=== PATIENT | female | born 1960 | race Caucasian/White ===

== ENCOUNTER 2017-07-29 18:57 | Emergency (ER) | payer MEDICARE, MEDICAID ==
[~2017-07-29] VITALS: Ht 160 cm; Wt 115.9 kg
[~2017-07-29 18:57] MED LIST: ALBU8.5H8 IH; ATOR10TA87 PO; CEPH500C5 PO; CLIN150C99 PO; GEMF600T3 CORPAK; GUAI120015 PO; HCTZ25T PO; METF500T PO; METO50TA16 PO; NEOM10SO7 RIGHT EAR; PSEU60TA22 PO; RAMI10CA44 PO; VALS160T2 PO
[2017-07-29] MEDS ORDERED: CEPH500C2 PO (22:53)
[2017-07-29] MEDS ORDERED: cephalexin 500mg capsule PO ONE (22:55)
[2017-07-29 22:59] VITALS: BP 125/85
== END 2017-07-29 23:07 | disposition home or self-care (01) ==
LOC: ER 18:58
DX: S51.801A Unspecified open wound of right forearm, initial encounter (principal); I10 Essential (primary) hypertension; E11.9 Type 2 diabetes mellitus without complications; E78.00 Pure hypercholesterolemia, unspecified; Z86.14 Personal history of Methicillin resistant Staphylococcus aureus infection; Z79.84 Long term (current) use of oral hypoglycemic drugs; Z79.899 Other long term (current) drug therapy; Z98.890 Other specified postprocedural states; Z88.2 Allergy status to sulfonamides; X58.XXXA Exposure to other specified factors, initial encounter; Y93.89 Activity, other specified; Y92.89 Other specified places as the place of occurrence of the external cause; Y99.8 Other external cause status
CPT/HCPCS: 99283

== ENCOUNTER → 2017-08-19 | Emergency (ER) | payer MEDICARE, MEDICAID ==
[~2017-08-19] VITALS: Ht 160 cm; Wt 117.0 kg
[~2017-08-19] MED LIST changes: +AZIT-63 PO; +GUAI473S11 PO; +TAM75C PO
[2017-08-19 01:03] VITALS: BP 132/79
== END | disposition home or self-care (01) ==
LOC: ER 01:00
DX: J20.9 Acute bronchitis, unspecified (principal); I10 Essential (primary) hypertension; E11.9 Type 2 diabetes mellitus without complications; E78.00 Pure hypercholesterolemia, unspecified; Z88.2 Allergy status to sulfonamides
CPT/HCPCS: 99283

== ENCOUNTER 2018-03-21 01:01 | Emergency (ER) | payer MEDICARE, MEDICAID ==
[~2018-03-21] VITALS: Ht 160 cm; Wt 113.5 kg
[~2018-03-21 01:01] MED LIST changes: -AZIT-63 PO; -CEPH500C5 PO; +CLIN300C85 PO; -GEMF600T3 CORPAK; +GEMF600T5 CORPAK; -GUAI473S11 PO; -TAM75C PO
[2018-03-21] MEDS ORDERED: GUAI473S11 PO (01:22)
[2018-03-21] MEDS ORDERED: CLIN300C54 PO (01:22)
[2018-03-21 01:30] VITALS: BP 154/72
== END 2018-03-21 01:35 | disposition home or self-care (01) ==
LOC: ER 01:01
DX: S80.812A Abrasion, left lower leg, initial encounter (principal); J20.9 Acute bronchitis, unspecified; L03.116 Cellulitis of left lower limb; E78.00 Pure hypercholesterolemia, unspecified; I10 Essential (primary) hypertension; E11.9 Type 2 diabetes mellitus without complications; Z98.890 Other specified postprocedural states; Z86.14 Personal history of Methicillin resistant Staphylococcus aureus infection; Z88.2 Allergy status to sulfonamides; Z79.899 Other long term (current) drug therapy; W22.03XA Walked into furniture, initial encounter; Y93.89 Activity, other specified; Y92.099 Unspecified place in other non-institutional residence as the place of occurrence of the external cause; Y99.9 Unspecified external cause status
CPT/HCPCS: 99283

== ENCOUNTER 2018-05-01 00:11 | Emergency (ER) | payer MEDICARE, MEDICAID ==
[~2018-05-01] VITALS: Ht 160 cm; Wt 112.5 kg
[2018-05-01 00:12] VITALS: BP 159/89
[2018-05-01] MEDS ORDERED: CEPH500C5 PO (01:35)
== END 2018-05-01 01:55 | disposition home or self-care (01) ==
LOC: ER 00:12
DX: L03.119 Cellulitis of unspecified part of limb (principal); E78.00 Pure hypercholesterolemia, unspecified; I10 Essential (primary) hypertension; E11.9 Type 2 diabetes mellitus without complications; Z86.14 Personal history of Methicillin resistant Staphylococcus aureus infection; Z88.2 Allergy status to sulfonamides; Z79.899 Other long term (current) drug therapy; Z79.2 Long term (current) use of antibiotics
CPT/HCPCS: 99283

== ENCOUNTER 2018-06-29 23:40 | Emergency (ER) | payer MEDICARE, MEDICAID ==
[~2018-06-29] VITALS: Ht 152.4 cm; Wt 100.0 kg
[~2018-06-29 23:40] MED LIST changes: +CEPH500C5 PO
[2018-06-29 23:45] VITALS: BP 148/115
[2018-06-29] MEDS ORDERED: CLIN300C70 PO (23:55)
== END 2018-06-30 00:02 | disposition home or self-care (01) ==
LOC: ER 23:41
DX: S80.921A Unspecified superficial injury of right lower leg, initial encounter (principal); L03.115 Cellulitis of right lower limb; E78.00 Pure hypercholesterolemia, unspecified; I10 Essential (primary) hypertension; E11.9 Type 2 diabetes mellitus without complications; Z86.14 Personal history of Methicillin resistant Staphylococcus aureus infection; Z88.2 Allergy status to sulfonamides; Z79.899 Other long term (current) drug therapy; Z79.84 Long term (current) use of oral hypoglycemic drugs; X58.XXXA Exposure to other specified factors, initial encounter; Y93.89 Activity, other specified; Y92.89 Other specified places as the place of occurrence of the external cause; Y99.8 Other external cause status
CPT/HCPCS: 99283

== ENCOUNTER 2018-07-14 19:40 | Emergency (ER) | payer MEDICARE, MEDICAID ==
[~2018-07-14] VITALS: Ht 160 cm; Wt 112.0 kg
[~2018-07-14 19:40] MED LIST changes: +CLIN300C70 PO
[2018-07-14 19:47] VITALS: BP 154/96
[2018-07-14] MEDS ORDERED: DOXY100C2 PO (20:49)
== END 2018-07-14 21:09 | disposition home or self-care (01) ==
LOC: ER 19:41
DX: L98.8 Other specified disorders of the skin and subcutaneous tissue (principal); E78.00 Pure hypercholesterolemia, unspecified; I10 Essential (primary) hypertension; E11.9 Type 2 diabetes mellitus without complications; Z86.14 Personal history of Methicillin resistant Staphylococcus aureus infection; Z98.890 Other specified postprocedural states; Z88.2 Allergy status to sulfonamides; Z79.2 Long term (current) use of antibiotics; Z79.899 Other long term (current) drug therapy
CPT/HCPCS: 99283

== ENCOUNTER 2018-08-21 00:34 | Emergency (ER) | payer MEDICARE, MEDICAID ==
[~2018-08-21] VITALS: Ht 160 cm; Wt 104.2 kg
[~2018-08-21 00:34] MED LIST changes: -CLIN300C70 PO
[2018-08-21] MEDS ORDERED: CLIN300C85 PO (01:27)
[2018-08-21 01:41] VITALS: BP 115/67
== END 2018-08-21 01:46 | disposition home or self-care (01) ==
LOC: ER 00:35
DX: L03.211 Cellulitis of face (principal); E78.00 Pure hypercholesterolemia, unspecified; I10 Essential (primary) hypertension; E11.9 Type 2 diabetes mellitus without complications; Z86.14 Personal history of Methicillin resistant Staphylococcus aureus infection; Z98.890 Other specified postprocedural states; Z88.2 Allergy status to sulfonamides; Z79.2 Long term (current) use of antibiotics; Z79.899 Other long term (current) drug therapy
CPT/HCPCS: 82948; 99283

== ENCOUNTER 2018-11-18 20:11 | Emergency (ER) | payer MEDICARE, MEDICAID ==
[~2018-11-18] VITALS: Ht 160 cm; Wt 120.0 kg
[~2018-11-18 20:11] MED LIST changes: +CLIN-96 PO; -CLIN300C85 PO
[2018-11-18 20:19] VITALS: BP 108/57
[2018-11-18] MEDS ORDERED: CEPH-572 PO (22:50)
== END 2018-11-18 22:56 | disposition home or self-care (01) ==
LOC: EDBD → ER 20:13 → MERGE 20:13 → ER 22:56
DX: L03.116 Cellulitis of left lower limb (principal); Z56.0 Unemployment, unspecified; Z79.899 Other long term (current) drug therapy
CPT/HCPCS: 99283

== ENCOUNTER 2018-11-24 00:03 | Emergency (ER) | payer MEDICARE, MEDICAID ==
[~2018-11-24] VITALS: Ht 160 cm; Wt 96.7 kg
[~2018-11-24 00:03] MED LIST changes: +CEPH-572 PO
[2018-11-24] MEDS ORDERED: CLIN150C2 PO (00:26)
[2018-11-24 00:47] VITALS: BP 118/75
== END 2018-11-24 00:48 | disposition home or self-care (01) ==
LOC: ER 00:03
DX: L03.115 Cellulitis of right lower limb (principal); I10 Essential (primary) hypertension; E78.00 Pure hypercholesterolemia, unspecified; E11.9 Type 2 diabetes mellitus without complications; Z88.2 Allergy status to sulfonamides
CPT/HCPCS: 99283

== ENCOUNTER 2019-01-09 13:46 | Emergency (ER) | payer MEDICARE, MEDICAID ==
[~2019-01-09] VITALS: Ht 160 cm; Wt 90.9 kg
[~2019-01-09 13:46] MED LIST changes: -CEPH-572 PO
[2019-01-09 14:31] VITALS: BP 121/61
[2019-01-09] MEDS ORDERED: proparacaine 0.5% ophthalmic drops 15ml EACHEYE ONE (14:40)
[2019-01-09] MEDS ORDERED: CLIN-96 PO (15:35)
[2019-01-09] MEDS ORDERED: AMOX875T2 PO (15:35)
== END 2019-01-09 15:46 | disposition home or self-care (01) ==
LOC: ER 13:47
DX: H00.031 Abscess of right upper eyelid (principal); E78.00 Pure hypercholesterolemia, unspecified; I10 Essential (primary) hypertension; E11.9 Type 2 diabetes mellitus without complications; Z86.14 Personal history of Methicillin resistant Staphylococcus aureus infection; Z98.890 Other specified postprocedural states; Z88.2 Allergy status to sulfonamides; Z79.84 Long term (current) use of oral hypoglycemic drugs; Z79.899 Other long term (current) drug therapy
CPT/HCPCS: 99283

== ENCOUNTER 2019-03-17 16:53 | Emergency (ER) | payer MEDICARE, MEDICAID ==
[~2019-03-17] VITALS: Ht 152.4 cm; Wt 115.0 kg
[~2019-03-17 16:53] MED LIST changes: +AMOX875T2 PO
[2019-03-17 16:58] VITALS: BP 132/63
[2019-03-17] MEDS ORDERED: DOXY100C43 PO (17:56)
== END 2019-03-17 18:04 | disposition home or self-care (01) ==
LOC: ER 16:54
DX: L03.114 Cellulitis of left upper limb (principal); E78.00 Pure hypercholesterolemia, unspecified; I10 Essential (primary) hypertension; E11.9 Type 2 diabetes mellitus without complications; Z86.14 Personal history of Methicillin resistant Staphylococcus aureus infection; Z98.890 Other specified postprocedural states; Z88.2 Allergy status to sulfonamides; Z79.2 Long term (current) use of antibiotics; Z79.84 Long term (current) use of oral hypoglycemic drugs; Z79.899 Other long term (current) drug therapy
CPT/HCPCS: 99283

== ENCOUNTER 2019-06-02 14:02 | Emergency (ER) | payer MEDICARE, MEDICAID ==
[~2019-06-02] VITALS: Ht 160 cm; Wt 114.0 kg
[~2019-06-02 14:02] MED LIST changes: -CEPH500C5 PO; +CLIN-90 PO; -CLIN-96 PO
[2019-06-02 14:20] VITALS: BP 116/71
[2019-06-02] MEDS ORDERED: CEPH-572 PO (15:12)
== END 2019-06-02 15:34 | disposition home or self-care (01) ==
LOC: ER 14:03
DX: I80.252 Phlebitis and thrombophlebitis of left calf muscular vein (principal); E78.00 Pure hypercholesterolemia, unspecified; I10 Essential (primary) hypertension; E11.9 Type 2 diabetes mellitus without complications; Z86.14 Personal history of Methicillin resistant Staphylococcus aureus infection; Z98.890 Other specified postprocedural states; Z88.2 Allergy status to sulfonamides; Z79.899 Other long term (current) drug therapy
CPT/HCPCS: 99284

== ENCOUNTER 2019-06-25 16:43 | Inpatient (IN) | payer MEDICARE, MEDICAID ==
[~2019-06-25] VITALS: Ht 160 cm; Wt 117.0 kg
[2019-06-25] MEDS ORDERED: benzonatate 100mg capsule PO ONE (17:55)
[2019-06-25] MEDS ORDERED: diltiazem 5mg/ml 5ml inj. IV ONE (18:20)
[2019-06-25] MEDS ORDERED: diltiazem CD 120mg capsule (once-daily) PO STA (18:20)
[2019-06-25 18:48] LABS: BASOPHILS # (AUTO) 0.1 X10'3 (0-0.2); BASOPHILS % (AUTO) 0.8 % (0-1); EOSINOPHILS # (AUTO) 0.2 X10'3 (0-0.9); EOSINOPHILS % (AUTO) 2.7 % (0-6); HEMATOCRIT 41.1 % (35.0-45.0); HEMOGLOBIN 13.2 g/dl (12.0-16.0); LYMPHOCYTES # (AUTO) 2.5 X10'3 (1.1-4.8); LYMPHOCYTES % (AUTO) 31.6 % (21-51); MEAN CORPUSCULAR HEMOGLOBIN 21.5 PG (27.0-31.0); MEAN CORPUSCULAR HGB CONC 32.2 g/dL (33.0-36.5); MEAN CORPUSCULAR VOLUME 66.7 FL (78-98); MEAN PLATELET VOLUME 8.6 FL (7.4-10.4); MONOCYTES # (AUTO) 0.6 X10'3 (0-0.9); MONOCYTES % (AUTO) 8.1 % (2-12); NEUTROPHILS # (AUTO) 4.5 X10'3 (1.8-7.7); NEUTROPHILS % (AUTO) 56.8 % (42-75); PLATELET COUNT 262 X10'3 (140-440); RED BLOOD COUNT 6.16 X10'6 (4.20-5.60); RED CELL DISTRIBUTION WIDTH 15.3 % (11.5-14.5)
[2019-06-25 18:56] LABS: PARTIAL THROMBOPLASTIN TIME 25 SECONDS (22-32)
[2019-06-25 18:57] LABS: ALANINE AMINOTRANSFERASE 49 U/L (12-78); ALBUMIN 4.5 G/DL (3.4-5.0); ALBUMIN/GLOBULIN RATIO 1.3 (1.1-1.5); ALKALINE PHOSPHATASE 44 IU/L (46-116); ANION GAP 7 (8-16); ASPARTATE AMINO TRANSFERASE 35 U/L (10-37); BILIRUBIN,TOTAL 0.6 MG/DL (0.1-1.0); BLOOD UREA NITROGEN 15 MG/DL (7-18); BUN/CREATININE RATIO 22.4 (6.6-38.0); CALCIUM 9.5 MG/DL (8.5-10.1); CHLORIDE 100 MMOL/L (99-107); CREATININE 0.67 MG/DL (0.40-0.90); GLUCOSE 106 MG/DL (70-104); POTASSIUM 3.7 MMOL/L (3.5-5.1); SODIUM 140 MMOL/L (135-145); TOTAL CARBON DIOXIDE 33.1 MMOL/L (24-32); eGFR 90 ML/MIN
--- NOTE | 2019-06-25 19:10 | NUR ---
SPOKE TO NADYA JOY REGARDING MEDICATIONS ORDERED: IV CARDIZEM 5MG AND 240 MG EXTENDED RELEASE CARDIZEM; PER NADYA HE "IS FOLLOWING PROTOCOL AND SPOKE WITH DR JUÁREZ"
[2019-06-25] MEDS: diltiazem CD 120mg capsule (once-daily) PO SCH (19:50)
[2019-06-25] MEDS ORDERED: MAGN500C16 PO (20:04)
[2019-06-25] MEDS ORDERED: GLIM2TAB3 PO (20:04)
[2019-06-25] MEDS ORDERED: OMEP40CA13 PO (20:04)
[2019-06-25] MEDS ORDERED: FERR325T32 PO (20:04)
[2019-06-25 20:08] LABS: LARGE PLATELETS MODERATE; MICROCYTOSIS 2+; PLATELET ESTIMATE NORMAL; POLYCHROMASIA FEW
[2019-06-25] MEDS ORDERED: magnesium hydroxide 30ml (MOM) UD suspension PO PRN (21:20)
[2019-06-25] MEDS ORDERED: ondansetron/PF 4mg/2ml inj IV PRN (21:20)
[2019-06-25] MEDS ORDERED: mag hydrox/Alum hydrox/simeth 30ml oral suspension PO PRN (21:20)
[2019-06-25] MEDS ORDERED: acetaminophen 325mg tablet PO PRN (21:20)
[2019-06-25] MEDS ORDERED: albuterol 2.5 MG/3 ML nebule NEB PRN (21:25)
--- NOTE | 2019-06-25 21:37 | NUR ---
CALLED PCU FOR UPDATE ON ROOM ASSIGNMENT, PT WILL BE ADMITTED BUT NO ROOM ASSIGNED AT THIS TIME. IT SECURITY MANAGER MADE AWARE. PT REMAINS STABLE AT THIS TIME.
--- NOTE | 2019-06-25 21:45 | NUR ---
Patient in room PCU 3016. I have received report from JASWANT Rolon and had the opportunity to ask questions and assume patient care.
--- NOTE | 2019-06-25 22:00 | NUR ---
Pt arrived to floor via gurney. [facility], SBA. Jessy activity well. Accompanied by sister. No signs of distress, VSS. No complaints.
[2019-06-25 22:59] VITALS: BP 124/65
[2019-06-26 02:00] VITALS: BP 117/85
--- NOTE | 2019-06-26 04:33 | NUR ---
Pharmacy called to confirm as to whether patient currently takes Ramapril and Valsartan consecutively. Pt sleeping, will confirm when woken.
[2019-06-26 06:00] VITALS: BP 111/63
[2019-06-26 06:01] LABS: BASOPHILS % (AUTO) 0.6 % (0-1); EOSINOPHILS # (AUTO) 0.1 X10'3 (0-0.9); EOSINOPHILS % (AUTO) 2.4 % (0-6); HEMATOCRIT 39.7 % (35.0-45.0); HEMOGLOBIN 12.7 g/dl (12.0-16.0); LYMPHOCYTES # (AUTO) 1.7 X10'3 (1.1-4.8); MEAN CORPUSCULAR HEMOGLOBIN 21.7 PG (27.0-31.0); MEAN CORPUSCULAR VOLUME 67.8 FL (78-98); MEAN PLATELET VOLUME 8.9 FL (7.4-10.4); MONOCYTES # (AUTO) 0.5 X10'3 (0-0.9); MONOCYTES % (AUTO) 8.5 % (2-12); NEUTROPHILS # (AUTO) 3.7 X10'3 (1.8-7.7); NEUTROPHILS % (AUTO) 60.5 % (42-75); PLATELET COUNT 200 X10'3 (140-440); RED BLOOD COUNT 5.85 X10'6 (4.20-5.60); RED CELL DISTRIBUTION WIDTH 14.8 % (11.5-14.5); WHITE BLOOD COUNT 6.1 X10'3 (4.5-11.0)
--- NOTE | 2019-06-26 06:14 | NUR ---
Patient in room PCU 3016. I have received report from JASWANT Silveira and had the opportunity to ask questions and assume patient care.
--- NOTE | 2019-06-26 06:14 | NUR ---
Problems reprioritized. Patient report given, questions answered & plan of care reviewed with JASWANT Mejia.
[2019-06-26 06:34] LABS: ALANINE AMINOTRANSFERASE 47 U/L (12-78); ALBUMIN/GLOBULIN RATIO 1.3 (1.1-1.5); ALKALINE PHOSPHATASE 38 IU/L (46-116); ANION GAP 12 (8-16); ASPARTATE AMINO TRANSFERASE 45 U/L (10-37); BILIRUBIN,TOTAL 0.7 MG/DL (0.1-1.0); BLOOD UREA NITROGEN 16 MG/DL (7-18); BUN/CREATININE RATIO 24.2 (6.6-38.0); CALCIUM 9.2 MG/DL (8.5-10.1); CHLORIDE 101 MMOL/L (99-107); CREATININE 0.66 MG/DL (0.40-0.90); GLUCOSE 121 MG/DL (70-104); POTASSIUM 3.8 MMOL/L (3.5-5.1); SODIUM 141 MMOL/L (135-145); TOTAL CARBON DIOXIDE 28.5 MMOL/L (24-32); TOTAL PROTEIN 7.2 G/DL (6.4-8.2); eGFR > 90 ML/MIN
[2019-06-26] MEDS ORDERED: heparin, porcine 5000 units/ml vial SQ SCH (08:00)
[2019-06-26] MEDS ORDERED: lisinopril 20mg tablet PO SCH (08:00)
[2019-06-26] MEDS ORDERED: losartan 50mg tablet PO SCH (08:00)
[2019-06-26 08:17] LABS: MICROCYTOSIS 2+; PLATELET ESTIMATE NORMAL
[2019-06-26 08:18] LABS: ELLIPTOCYTES FEW; POLYCHROMASIA FEW
[2019-06-26] MEDS: pantoprazole 40mg Tablet.DR PO SCH (08:21)
[2019-06-26] MEDS: metoprolol tartrate 50mg tablet PO SCH ×2 (08:21→20:33)
[2019-06-26] MEDS: glimepiride 1 MG tablet PO SCH (08:22)
[2019-06-26] MEDS: ferrous sulfate 325mg tablet PO SCH (08:22)
[2019-06-26] MEDS: gemfibrozil 600mg tablet CORPAK SCH ×2 (08:22→20:33)
[2019-06-26] MEDS: metFORMIN 500mg tablet PO SCH ×2 (10:18→17:45)
[2019-06-26 11:00] VITALS: BP 126/74
[2019-06-26 15:00] VITALS: BP 102/52
--- NOTE | 2019-06-26 18:36 | NUR ---
Problems reprioritized. Patient report given, questions answered & plan of care reviewed with JASWANT Chacon.
[2019-06-26 19:00] VITALS: BP 127/48
[2019-06-26] MEDS: apixaban 5mg tablet PO SCH (20:31)
[2019-06-26] MEDS ORDERED: magnesium oxide 400mg tablet PO SCH (21:00)
[2019-06-26] MEDS ORDERED: atorvastatin 10mg tablet PO SCH (21:00)
[2019-06-26 23:00] VITALS: BP 111/57
[2019-06-27 03:00] VITALS: BP 114/58
[2019-06-27 06:00] VITALS: BP 112/82
[2019-06-27 06:15] LABS: BASOPHILS % (AUTO) 0.6 % (0-1); EOSINOPHILS # (AUTO) 0.2 X10'3 (0-0.9); EOSINOPHILS % (AUTO) 2.6 % (0-6); HEMATOCRIT 40.2 % (35.0-45.0); HEMOGLOBIN 12.7 g/dl (12.0-16.0); LYMPHOCYTES # (AUTO) 1.9 X10'3 (1.1-4.8); LYMPHOCYTES % (AUTO) 31.4 % (21-51); MEAN CORPUSCULAR HEMOGLOBIN 21.2 PG (27.0-31.0); MEAN CORPUSCULAR HGB CONC 31.6 g/dL (33.0-36.5); MEAN PLATELET VOLUME 8.8 FL (7.4-10.4); MONOCYTES # (AUTO) 0.5 X10'3 (0-0.9); MONOCYTES % (AUTO) 8.8 % (2-12); NEUTROPHILS # (AUTO) 3.5 X10'3 (1.8-7.7); NEUTROPHILS % (AUTO) 56.6 % (42-75); PLATELET COUNT 218 X10'3 (140-440); RED BLOOD COUNT 6.01 X10'6 (4.20-5.60); WHITE BLOOD COUNT 6.2 X10'3 (4.5-11.0)
--- NOTE | 2019-06-27 06:25 | NUR ---
Patient in room PCU 3016. I have received report from Ines MICHAUD and had the opportunity to ask questions and assume patient care.
--- NOTE | 2019-06-27 06:36 | NUR ---
Patient in room PCU 3016. I have received report from JASWANT Chacon and had the opportunity to ask questions and assume patient care.
[2019-06-27 06:49] LABS: ALANINE AMINOTRANSFERASE 46 U/L (12-78); ALBUMIN 3.8 G/DL (3.4-5.0); ALBUMIN/GLOBULIN RATIO 1.2 (1.1-1.5); ALKALINE PHOSPHATASE 37 IU/L (46-116); ANION GAP 7 (8-16); ASPARTATE AMINO TRANSFERASE 43 U/L (10-37); BILIRUBIN,TOTAL 0.7 MG/DL (0.1-1.0); BLOOD UREA NITROGEN 24 MG/DL (7-18); BUN/CREATININE RATIO 34.8 (6.6-38.0); CHLORIDE 103 MMOL/L (99-107); CREATININE 0.69 MG/DL (0.40-0.90); GLUCOSE 114 MG/DL (70-104); POTASSIUM 4.1 MMOL/L (3.5-5.1); SODIUM 142 MMOL/L (135-145); TOTAL CARBON DIOXIDE 32.5 MMOL/L (24-32); eGFR 87 ML/MIN
[2019-06-27 07:29] LABS: MICROCYTOSIS 2+; PLATELET ESTIMATE NORMAL
[2019-06-27 07:30] LABS: ELLIPTOCYTES FEW; POLYCHROMASIA FEW; SCHISTOCYTES FEW; TEAR DROP CELLS FEW
[2019-06-27] MEDS: pantoprazole 40mg Tablet.DR PO SCH (08:14)
[2019-06-27] MEDS: apixaban 5mg tablet PO SCH (08:14)
[2019-06-27] MEDS: ferrous sulfate 325mg tablet PO SCH (08:14)
[2019-06-27] MEDS: gemfibrozil 600mg tablet CORPAK SCH (08:14)
[2019-06-27] MEDS: diltiazem CD 120mg capsule (once-daily) PO SCH (08:15)
[2019-06-27] MEDS: glimepiride 1 MG tablet PO SCH (08:15)
[2019-06-27] MEDS: metoprolol tartrate 50mg tablet PO SCH (08:16)
[2019-06-27] MEDS: metFORMIN 500mg tablet PO SCH (08:59)
[2019-06-27 11:00] VITALS: BP 128/69
[2019-06-27] MEDS ORDERED: APIX5TAB3 PO (11:58)
[2019-06-27] MEDS ORDERED: CARCD120C PO (11:58)
--- NOTE | 2019-06-27 13:15 | NUR ---
Discharge instructions, including medication information, follow-up appts & S&S of worsening condition reviewed with pt and pt's sister. Pt and sister had opportunity to ask questions & expressed understanding of discharge instructions. Tele box removed & returned to teletypewriter operator, IV removed, cannula intact. Wrist band removed. All pt belongings gathered up & sent with pt. Pt transported to [facility] in wheelchair where she ambulated independently to private vehicle without difficulty.
--- NOTE | 2019-06-27 13:40 | NUR ---
Pt prescriptions called into pt preferred pharmacy, phone number [phone].
[2019-06-27 14:10] LABS: HEMOGLOBIN A1C 6.2 % (4.5-6.2)
== END 2019-06-27 13:22 | disposition home or self-care (01) | DRG 310 ==
LOC: ER 16:45 → ED HOLD 21:32 → EDBEDREQ 21:47 → PCU 3S 22:46 → OBSVTOIN 06-26 09:30
PROVIDERS: ADMIT Internal Medicine; ATTEND Family Medicine
DX: I48.91 Unspecified atrial fibrillation (principal); B34.9 Viral infection, unspecified; E78.5 Hyperlipidemia, unspecified; E11.9 Type 2 diabetes mellitus without complications; E78.00 Pure hypercholesterolemia, unspecified; I10 Essential (primary) hypertension; M17.12 Unilateral primary osteoarthritis, left knee; R94.31 Abnormal electrocardiogram [ECG] [EKG]; H92.01 Otalgia, right ear; Z88.2 Allergy status to sulfonamides
CPT/HCPCS: 36415; 80053; 83036; 85025; 85610; 85730; 87081; 93005; 93306; 94760; 96372; 96374; 99285; G0378; J1644; J3490

== ENCOUNTER 2019-10-08 17:52 | Emergency (ER) | payer MEDICARE, MEDICAID ==
[~2019-10-08] VITALS: Ht 160 cm; Wt 115.0 kg
[~2019-10-08 17:52] MED LIST changes: -AMOX875T2 PO; +APIX5TAB3 PO; +CARCD120C PO; -CLIN-90 PO; -CLIN150C99 PO; +FERR325T32 PO; +GLIM2TAB6 PO; -GUAI120015 PO; -HCTZ25T PO; +MAGN500C16 PO; -NEOM10SO7 RIGHT EAR; +OMEP40CA13 PO; -PSEU60TA22 PO; -RAMI10CA44 PO
[2019-10-08 17:54] VITALS: BP 150/93
[2019-10-08] MEDS ORDERED: ERYT1OIN6 EACHEYE ×2 (18:05→18:06)
== END 2019-10-08 18:14 | disposition home or self-care (01) ==
LOC: ER 17:52
DX: H10.9 Unspecified conjunctivitis (principal); E78.00 Pure hypercholesterolemia, unspecified; I10 Essential (primary) hypertension; E11.9 Type 2 diabetes mellitus without complications; Z86.14 Personal history of Methicillin resistant Staphylococcus aureus infection; Z98.890 Other specified postprocedural states; Z88.2 Allergy status to sulfonamides; Z79.01 Long term (current) use of anticoagulants; Z79.2 Long term (current) use of antibiotics; Z79.899 Other long term (current) drug therapy
CPT/HCPCS: 99283

== ENCOUNTER 2019-12-12 23:20 | Emergency (ER) | payer MEDICARE, MEDICAID ==
[~2019-12-12] VITALS: Ht 160 cm; Wt 114.1 kg
[2019-12-12 23:23] VITALS: BP 172/105
[2019-12-12] MEDS ORDERED: CLIN150C2 PO (23:30)
[2019-12-12] MEDS ORDERED: TETanus/Pertussis (Acell)/Diphther VAC/PF (Tdap-Adult) 0.5ml syringe IMVAC ONE (23:30)
[2019-12-12] MEDS ORDERED: CEPH-572 PO (23:30)
--- NOTE | 2019-12-15 13:05 | NUR ---
PT CALLED AND NOTIFIED THAT THE CLINDAMYCIN THAT SHE IS TAKING FOR HER CELLULITS IS NOT EFFECTIVE AGAINST THE BACTERIA PER THE LAB RESULTS RECEIVED TODAY. PT ADVISED THAT SHE IS TO STOP TAKING THE CLINDAMYCIN AND A NEW RX WILL BE CALLED INTO HER PHARMACY FOR RIFAMPIN 300MG PO BID x7 DAYS. PT REQUESTED THAT THE RX BE CALLED INTO [facility], IF OPEN; IF NOT CALL TO [facility] [address] RX WAS CALLED INTO [facility] REQUESTED. PT WAS UNABLE TO IDENTIFY WHICH OF HER ABX CURRENTLY TAKING WAS THE CLINDAMYCIN, REQUESTED THAT SHE TAKE HER ABX TO THE PHARMACY AND HAVE THE PHARMACIST IDENTIFY THE CLINDAMYCIN FOR THE PT. IT WAS REQUESTED OF THE PHARMACIST TO HELP THE PT IDENTIFY HER CLINDAMYCIN AND TO DISPOSE OF IT FOR THE PT SINCE SHE IS NOT TO TAKE THE MEDICATION ANY LONGER. PHARMASIST STATED THAT SHE WOULD DISPOSE OF THE CLINDAMYCIN FOR THE PT.
== END 2019-12-12 23:59 | disposition home or self-care (01) ==
LOC: ER 23:20
DX: L02.415 Cutaneous abscess of right lower limb (principal); L03.115 Cellulitis of right lower limb; E11.9 Type 2 diabetes mellitus without complications; E78.00 Pure hypercholesterolemia, unspecified; I10 Essential (primary) hypertension; Z86.14 Personal history of Methicillin resistant Staphylococcus aureus infection; Z98.890 Other specified postprocedural states; Z88.2 Allergy status to sulfonamides; Z79.01 Long term (current) use of anticoagulants; Z79.899 Other long term (current) drug therapy
CPT/HCPCS: 87070; 87077; 87186; 90471; 90715; 99283

== ENCOUNTER 2019-12-19 23:22 | Emergency (ER) | payer MEDICARE, MEDICAID ==
[~2019-12-19] VITALS: Ht 160 cm; Wt 90.9 kg
[~2019-12-19 23:22] MED LIST changes: +CEPH-572 PO; +CLIN150C2 PO
[2019-12-19 23:25] VITALS: BP 125/91
[2019-12-20] MEDS ORDERED: DOXYCYCLINE 100MG CAPSULE PO STA (00:21)
[2019-12-20] MEDS ORDERED: DOXY100C43 PO (00:24)
[2019-12-20] MEDS ORDERED: LEVO500T89 PO (00:24)
[2019-12-20] MEDS ORDERED: levoFLOXACIN 250mg tablet PO ONE (00:25)
== END 2019-12-20 00:33 | disposition home or self-care (01) ==
LOC: ER 23:22
DX: L03.115 Cellulitis of right lower limb (principal); E78.00 Pure hypercholesterolemia, unspecified; I10 Essential (primary) hypertension; E11.9 Type 2 diabetes mellitus without complications; Z86.14 Personal history of Methicillin resistant Staphylococcus aureus infection; Z98.890 Other specified postprocedural states; Z56.0 Unemployment, unspecified; Z88.2 Allergy status to sulfonamides; Z79.01 Long term (current) use of anticoagulants; Z79.2 Long term (current) use of antibiotics; Z79.899 Other long term (current) drug therapy
CPT/HCPCS: 82948; 99283

== ENCOUNTER 2020-11-24 19:30 | Emergency (ER) | payer MEDICARE, MEDICAID ==
[~2020-11-24] VITALS: Ht 160 cm; Wt 105.4 kg
[~2020-11-24 19:30] MED LIST changes: -CEPH-572 PO; -CLIN150C2 PO; -GEMF600T5 CORPAK; +GEMF600T90 CORPAK
[2020-11-24 19:33] VITALS: BP 132/60
[2020-11-24] MEDS ORDERED: AMOX-422 PO (21:47)
[2020-11-24] MEDS ORDERED: ALBU8HFA PO (21:47)
[2020-11-24] MEDS ORDERED: BENZ-16 PO (21:47)
== END 2020-11-24 22:10 | disposition home or self-care (01) ==
LOC: ER 19:30
DX: J20.9 Acute bronchitis, unspecified (principal); Z20.822 Contact with and (suspected) exposure to COVID-19; Z88.2 Allergy status to sulfonamides; Z79.82 Long term (current) use of aspirin; Z79.899 Other long term (current) drug therapy
CPT/HCPCS: 71045; 87635; 99283; C9803

== ENCOUNTER 2021-02-16 12:28 | Emergency (ER) | payer MEDICARE, MEDICAID ==
[~2021-02-16] VITALS: Ht 160 cm; Wt 95.0 kg
[~2021-02-16 12:28] MED LIST changes: -OMEP40CA13 PO; +OMEP40CA21 PO
[2021-02-16 13:36] LABS: BASOPHILS % (AUTO) 0.7 % (0-1); EOSINOPHILS # (AUTO) 0.1 X10'3 (0-0.9); EOSINOPHILS % (AUTO) 1.9 % (0-6); LYMPHOCYTES # (AUTO) 1.7 X10'3 (1.1-4.8); LYMPHOCYTES % (AUTO) 26.7 % (21-51); MEAN PLATELET VOLUME 8.6 FL (7.4-10.4); MONOCYTES # (AUTO) 0.5 X10'3 (0-0.9); MONOCYTES % (AUTO) 7.6 % (2-12); NEUTROPHILS % (AUTO) 63.1 % (42-75); PLATELET COUNT 223 X10'3 (140-440); WHITE BLOOD COUNT 6.4 X10'3 (4.5-11.0)
[2021-02-16 14:00] LABS: ALANINE AMINOTRANSFERASE 29 U/L (12-78); ALBUMIN 4.5 G/DL (3.4-5.0); ALBUMIN/GLOBULIN RATIO 1.4 (1.1-1.5); ALKALINE PHOSPHATASE 53 IU/L (46-116); ANION GAP 8 (8-16); ASPARTATE AMINO TRANSFERASE 19 U/L (10-37); BILIRUBIN,TOTAL 0.8 MG/DL (0.1-1.0); BLOOD UREA NITROGEN 14 MG/DL (7-18); CALCIUM 9.2 MG/DL (8.5-10.1); CHLORIDE 103 MMOL/L (99-107); GLUCOSE 89 MG/DL (70-104); POTASSIUM 4.5 MMOL/L (3.5-5.1); SODIUM 141 MMOL/L (135-145); TOTAL CARBON DIOXIDE 30.4 MMOL/L (24-32); TOTAL PROTEIN 7.7 G/DL (6.4-8.2); eGFR 85 ML/MIN
[2021-02-16 15:10] LABS: HEMATOCRIT 42.3 % (35.0-45.0); HEMOGLOBIN 13.9 g/dl (12.0-16.0); MEAN CORPUSCULAR HEMOGLOBIN 20.8 PG (27.0-31.0); MEAN CORPUSCULAR HGB CONC 32.9 g/dL (33.0-36.5); MEAN CORPUSCULAR VOLUME 63.1 FL (78-98); RED BLOOD COUNT 6.69 X10'6 (4.20-5.60); RED CELL DISTRIBUTION WIDTH 15.1 % (11.5-14.5)
[2021-02-16 16:09] LABS: PLATELET ESTIMATE NORMAL
[2021-02-16 16:10] LABS: MICROCYTOSIS 2+
[2021-02-16 16:13] LABS: POLYCHROMASIA FEW; TEAR DROP CELLS FEW
[2021-02-16 16:15] LABS: ELLIPTOCYTES 1+
[2021-02-16 18:10] VITALS: BP 135/70
== END 2021-02-16 18:09 | disposition home or self-care (01) ==
LOC: ER 12:28
DX: R07.89 Other chest pain (principal); R00.2 Palpitations; R11.0 Nausea; I48.91 Unspecified atrial fibrillation; E11.9 Type 2 diabetes mellitus without complications; I10 Essential (primary) hypertension; E78.00 Pure hypercholesterolemia, unspecified; Z86.14 Personal history of Methicillin resistant Staphylococcus aureus infection; Z56.0 Unemployment, unspecified; Z88.2 Allergy status to sulfonamides; Z79.899 Other long term (current) drug therapy
CPT/HCPCS: 36415; 71045; 80053; 83880; 84484; 85008; 85025; 93005; 99285

== ENCOUNTER 2021-06-13 19:11 | Emergency (ER) | payer MEDICARE, MEDICAID ==
[~2021-06-13] VITALS: Ht 160 cm; Wt 81.0 kg
[~2021-06-13 19:11] MED LIST changes: +ALBU8.5H17 IH; -ALBU8.5H8 IH
[2021-06-13 19:21] VITALS: BP 114/63
[2021-06-13] MEDS ORDERED: CEPH250T PO (21:23)
[2021-06-13] MEDS ORDERED: PERM60CR19 TP (21:23)
== END 2021-06-13 21:47 | disposition home or self-care (01) ==
LOC: ER 19:12
DX: B86 Scabies (principal); E78.00 Pure hypercholesterolemia, unspecified; I10 Essential (primary) hypertension; E11.9 Type 2 diabetes mellitus without complications; Z86.14 Personal history of Methicillin resistant Staphylococcus aureus infection; Z98.890 Other specified postprocedural states; Z56.0 Unemployment, unspecified; Z88.2 Allergy status to sulfonamides; Z79.2 Long term (current) use of antibiotics; Z79.899 Other long term (current) drug therapy
CPT/HCPCS: 99283

== ENCOUNTER 2022-01-11 16:59 | Emergency (ER) | payer MEDICARE, MEDICAID ==
[~2022-01-11] VITALS: Ht 160 cm; Wt 90.9 kg
[~2022-01-11 16:59] MED LIST changes: +CEPH250T PO; -MAGN500C16 PO; +MAGN500C4 PO
[2022-01-11 18:00] VITALS: BP 141/80
== END 2022-01-11 23:23 | disposition left against medical advice (07) ==
LOC: ER 17:00
DX: U07.1 COVID-19 (principal); R05.9 Cough, unspecified; Z53.21 Procedure and treatment not carried out due to patient leaving prior to being seen by health care provider

== ENCOUNTER 2023-09-14 20:57 | Emergency (ER) | payer MEDICARE, MEDICAID ==
[~2023-09-14 20:57] MED LIST changes: -CEPH250T PO
[2023-09-14 21:09] VITALS: BP 165/64; PULSE 103; RESP 18; TEMP 99.2; O2SAT 95
[2023-09-14] MEDS ORDERED: AZIT250T83 PO (23:32)
[2023-09-14] MEDS ORDERED: PROM118S5 PO (23:32)
[2023-09-14] MEDS ORDERED: ALBU8HFA INH (23:32)
== END 2023-09-15 01:13 | disposition home or self-care (01) ==
LOC: ER 20:58
DX: J06.9 Acute upper respiratory infection, unspecified (principal); E78.00 Pure hypercholesterolemia, unspecified; I10 Essential (primary) hypertension; E11.9 Type 2 diabetes mellitus without complications; Z88.2 Allergy status to sulfonamides; Z79.899 Other long term (current) drug therapy
CPT/HCPCS: 71045; 99283

== ENCOUNTER 2024-04-17 17:47 | Emergency (ER) | payer MEDICARE, MEDICAID ==
[~2024-04-17] VITALS: Ht 160 cm; Wt 90.9 kg
[2024-04-17 17:53] VITALS: BP 158/98; PULSE 86; RESP 16; TEMP 96.7; O2SAT 96
[2024-04-17] MEDS ORDERED: CEPH-585 PO (19:20)
[2024-04-17] MEDS: bacitracin 15gm ointment TP STA (19:54)
== END 2024-04-17 19:56 | disposition home or self-care (01) ==
LOC: ER 17:48
DX: L03.116 Cellulitis of left lower limb (principal); M25.562 Pain in left knee; I10 Essential (primary) hypertension; E11.9 Type 2 diabetes mellitus without complications; E78.00 Pure hypercholesterolemia, unspecified; Z88.2 Allergy status to sulfonamides; Z79.899 Other long term (current) drug therapy
CPT/HCPCS: 73564; 99284

== ENCOUNTER 2024-07-25 10:27 | Emergency (ER) | payer MEDICARE, MEDICAID ==
[~2024-07-25] VITALS: Ht 160 cm; Wt 110.9 kg
[2024-07-25 10:38] VITALS: BP 147/78; PULSE 72; O2SAT 97
[2024-07-25] MEDS ORDERED: BENZ-38 PO (11:53)
[2024-07-25] MEDS ORDERED: GUAI120015 PO (11:53)
[2024-07-25 12:11] VITALS: TEMP 96.5
[2024-07-25 12:12] VITALS: RESP 16
== END 2024-07-25 12:13 | disposition home or self-care (01) ==
LOC: ER 10:27
DX: B34.9 Viral infection, unspecified (principal); I10 Essential (primary) hypertension; E78.00 Pure hypercholesterolemia, unspecified; E11.9 Type 2 diabetes mellitus without complications; Z56.0 Unemployment, unspecified; Z79.899 Other long term (current) drug therapy; Z79.84 Long term (current) use of oral hypoglycemic drugs; Z98.890 Other specified postprocedural states; Z88.2 Allergy status to sulfonamides; Z20.822 Contact with and (suspected) exposure to COVID-19
CPT/HCPCS: 36415; 87502; 87503; 87811; 99283

== ENCOUNTER 2024-08-24 14:03 | Emergency (ER) | payer MEDICARE, MEDICAID ==
[~2024-08-24] VITALS: Ht 160 cm; Wt 111.1 kg
[~2024-08-24 14:03] MED LIST changes: +BENZ-38 PO; +GUAI120015 PO
[2024-08-24 14:04] VITALS: BP 118/77; PULSE 91; RESP 16; TEMP 98; O2SAT 96
[2024-08-24] MEDS ORDERED: ACYC-129 PO (14:31)
== END 2024-08-24 15:10 | disposition home or self-care (01) ==
LOC: ER 14:04
DX: B02.9 Zoster without complications (principal); I10 Essential (primary) hypertension; E78.00 Pure hypercholesterolemia, unspecified; E11.9 Type 2 diabetes mellitus without complications; Z88.2 Allergy status to sulfonamides; Z98.890 Other specified postprocedural states
CPT/HCPCS: 99283

== ENCOUNTER 2024-11-12 14:38 | Emergency (ER) | payer MEDICARE, MEDICAID ==
[~2024-11-12] VITALS: Ht 160 cm; Wt 107.7 kg
[2024-11-12 14:46] VITALS: BP 162/79; PULSE 70; RESP 18; O2SAT 98
[2024-11-12] MEDS ORDERED: AZIT250T83 PO (15:58)
[2024-11-12] MEDS: CefTRIAXone 1000mg IM Kit (w/lidocaine diluent) IM ONE (16:18)
[2024-11-12 16:21] VITALS: TEMP 96.8
== END 2024-11-12 16:24 | disposition home or self-care (01) ==
LOC: ER 14:39
DX: J18.9 Pneumonia, unspecified organism (principal); E11.9 Type 2 diabetes mellitus without complications; I10 Essential (primary) hypertension; E78.00 Pure hypercholesterolemia, unspecified; Z88.2 Allergy status to sulfonamides
CPT/HCPCS: 71046; 96372; 99283; J0696